=== PATIENT | female | born 1990 | race Caucasian/White ===

== ENCOUNTER → 2018-07-13 14:47 | Outpatient (CLI) | payer OTHER, SELFPAY ==
[2018-07-16 09:50] LABS: HPV Reflexed? NOT INDICATED
== END ==
PROVIDERS: Visit Provider Obstetrics & Gynecology
DX: Z12.4 Encounter for screening for malignant neoplasm of cervix (principal)
CPT/HCPCS: 88175; G0145

== ENCOUNTER → 2018-11-10 16:56 | Outpatient (CLI) | payer OTHER, SELFPAY ==
[2018-11-10 18:55] LABS: Chlamydia Trachomatis by PCR Negative (Negative); Neisserai gonorrhoeae by PCR Negative (Negative); Probe Check PASS; Sample Adequacy Control PASS; Specimen Processing Control PASS
== END ==
PROVIDERS: Visit Provider Obstetrics & Gynecology
DX: Z11.3 Encounter for screening for infections with a predominantly sexual mode of transmission (principal); Z30.430 Encounter for insertion of intrauterine contraceptive device
CPT/HCPCS: 87491; 87591

== ENCOUNTER 2019-05-20 09:33 | Emergency (ER) | payer OTHER, SELFPAY ==
[2019-05-20 09:34] VITALS: BP 142/87; PULSE 82; RESP 16; TEMP 36.7; O2SAT 98; BMI 36.1
--- NOTE | 2019-05-20 09:51 | EKG12_ITS ---
Test Reason : Blood Pressure : / mmHG Vent. Rate : 080 BPM Atrial Rate : 080 BPM P-R Int : 136 ms QRS Dur : 092 ms QT Int : 370 ms P-R-T Axes : 016 027 030 degrees QTc Int : 426 ms Normal sinus rhythm Normal ECG Confirmed by GABRIELLE LACEY, PERICO ([id number]), restaurant expeditor HOLLY PALACIOS ([id number]) on 05/24/2019 9:15:40 AM Referred By: BETH Confirmed By:SONA ANTHONY MD
--- NOTE | 2019-05-20 09:52 | RAD_ITS ---
STUDY: X-RAY CHEST REASON FOR EXAM: Female, 29 years old. Chest pain. Tingling of both upper extremities. TECHNIQUE: Single AP portable view of the chest. COMPARISON: None. FINDINGS: EKG electrodes are seen. The lungs are clear and expanded. There is no demonstrated pleural abnormality. Normal size heart. Normal mediastinum and juan. Normal visualized pulmonary arteries. Normal visualized aortic arch and descending thoracic aorta. Normal visualized thoracic spine. Normal visualized ribs, clavicles, and shoulders. There is no demonstrated abnormality of the visualized soft tissue structures of the upper abdomen. RAD/Chest 1 View (Portable) IMPRESSION: Normal x-ray examination of the chest. Electronically Signed: Ian Quevedo, at 10:24 EST , Service support ,
--- NOTE | 2019-05-20 09:54 | ED.VISSUMM ---
- ER Visit Summary Date of Service: 05/20/19 Chief Complaint: Chest pain History of Present Illness: The patient is a 29 F presenting with chest pain. Patient states this started around 630 this morning. She has an aching sensation in her mid chest. She also complains of bilateral hand tingling. She denies shortness of breath. Denies fever or chills. Denies cough. She has a history of anxiety. She is a smoker. No PE/DVT risk factors. Physical Examination: Vitals are stable. Patient is afebrile. Alert no acute distress. HEENT exam is unremarkable. Neck is supple. Lungs are clear and equal bilaterally. Mid chest tenderness to palpation with no crepitus Heart is regular rate and rhythm. Abdomen is soft nontender nondistended. Extremities are unremarkable. Skin is warm and dry. No focal neurologic deficit. Remainder of exam is unremarkable. Emergency Department Course and Treatment: EKG is sinus rhythm rate of 80 with no acute ischemic changes. Patient was given Toradol IV. Chest x-ray shows no acute process. CBC, chemistries unremarkable. Troponin is negative. D-dimer negative. hCG negative. On reevaluation, patient is feeling improved. She is given a prescription for naproxen. Advised to follow-up with her primary care physician. Advised return to ED for worsening complaints. Disposition: Discharged home Impression: Chest wall pain This note was generated with [employer] dictation software. It may contain incorrect words, spelling, and punctuation that were not noted in review of the chart prior to signing ED Disposition - Plan for ED Patient: Instructions: CHEST PAIN, Uncertain Cause Prescriptions: Naproxen [Naprosyn] 500 mg PO BID PRN #20 tab Prescription Printed Referrals: Olga Barnes NP-C [Primary Care Provider] -
[2019-05-20 10:12] LABS: Absolute Lymphocyte Count 1.89 X10^3/uL (0.83-4.51); Absolute Neutrophil Count 4.4 X10^3/uL (2.0-7.7); Basophil# 0.05 X10^3/uL; Basophil% 0.7 % (0-1); Eosinophil# 0.13 X10^3/uL; Eosinophils% 1.8 % (0-5); Hematocrit 40.9 % (37-47); Hemoglobin 14.1 g/dL (12.0-15.0); Lymphocyte # 1.89 X10^3/ul (4.0); Lymphocyte % 26.9 % (19-41); Mean Corp Hgb Conc 34.5 g/dL (32-36); Mean Corpuscular Hgb 30.5 pg (27.0-32.0); Mean Corpuscular Volume 88.3 fL (81-99); Mean Platelet Vol. 9.7 fl (6.2-12.0); Monocyte# 0.53 X10^3/uL; Monocyte% 7.5 % (0-10); NRBC Flagged by Analyzer 0 % (0-5); Neutrophil # 4.41 X10^3/uL (2.7-7.7); Neutrophil % 62.8 % (47-70); Platelet Count 267 K/mm3 (150-450); RBC Distribution Width CV 11.9 % (11.6-14.6); RBC Distribution Width SD 38.3 fl (35.1-43.9); Red Blood Count 4.63 M/mm3 (4.2-5.4)
[2019-05-20 10:29] LABS: Anion Gap 9 (5-15); BUN 15 mg/dL (7-18); BUN/Creat Ratio 18.4 RATIO (10-20); Calcium,Total 8.9 mg/dL (8.5-10.1); Chloride 108 mmol/L (98-107); Creatinine, Serum 0.82 mg/dL (0.55-1.02); EST Glomerular Filtration Rate 87 mL/min (>60); Est Glom Filt Rate - Afr Amer 106 mL/min (>60); Estimated Creatinine Clearance 82.98 ml/min; Glucose 98 mg/dL (74-106); Sodium Level 139 mmol/L (136-145)
[2019-05-20 10:33] LABS: Internal QC Validated? YES +Cl - CLEAR BKGD; Pregnancy, Serum, hCG Quali. NEGATIVE Negative
[2019-05-20 10:54] LABS: D-Dimer Quantitative (DVT/PE) < 0.27 FEU/ug/m (0.27-0.49)
[2019-05-20] MEDS: Ketorolac 30 MG/ML Syringe IV (11:07)
--- NOTE | 2019-05-20 11:48 | DCINST.ED_ITS ---
ED Disposition - Plan for ED Patient: Instructions: CHEST PAIN, Uncertain Cause Prescriptions: Naproxen [Naprosyn] 500 mg PO BID PRN #20 tablet Referrals: Olga Barnes, [facility] DIRECTOR-C [Primary Care Provider] -
[2019-05-20 12:09] VITALS: BP 113/81; PULSE 62; RESP 21; O2SAT 99
== END 2019-05-20 12:15 | disposition home or self-care (01) ==
LOC: ED 10:08
PROVIDERS: Emergency Provider Emergency Medicine; Family Provider Nurse Practitioner Family; PCP Nurse Practitioner Family
DX: R07.89 Other chest pain (principal); F41.9 Anxiety disorder, unspecified; Z72.0 Tobacco use
CPT/HCPCS: 71045; 80048; 84484; 84703; 85025; 85379; 93005; 96361; 96374; 99284; J7030